=== PATIENT | male | born 1970 | race Caucasian/White ===

== ENCOUNTER 2017-07-24 22:01 | Emergency (ER) | payer OTHER ==
[~2017-07-24] VITALS: Ht 185.4 cm; Wt 86.2 kg
[2017-07-24] MEDS ORDERED: LISINAPRIL (22:20)
[2017-07-24] MEDS ORDERED: ATOR10TA PO (22:20)
--- NOTE | 2017-07-24 22:21 | NUR ---
PATIENT BIB [facility] FOR ALLERGIC REACTION D/T TAKING SUBUTEX. NO RESPIRATORY DISTRESS NOTED, O2 SATURATION 98% ON RA. RESPIRATIONS EVEN AND UNLABORED.
--- NOTE | 2017-07-24 22:32 | NUR ---
DR. PRADO AT BEDSIDE FOR MSE.
[2017-07-24] MEDS ORDERED: IV NORMAL SALINE 1000 ML BAG IV ONE (22:45)
[2017-07-24] MEDS ORDERED: ONDANSETRON 4 MG/2 ML VIAL IV ONE (22:45)
[2017-07-24 22:58] LABS: BASOPHILS # (AUTO) 0.1 K/uL (0.0-8.0); BASOPHILS % (AUTO) 0.5 % (0.0-2.0); EOSINOPHILS # (AUTO) 0.1 K/uL (0.0-0.7); EOSINOPHILS % (AUTO) 0.8 % (0.0-7.0); HEMATOCRIT 42.4 % (36.7-47.1); HEMOGLOBIN 14.5 g/dL (12.5-16.3); LYMPHOCYTES # (AUTO) 3.3 K/uL (20.0-40.0); LYMPHOCYTES % (AUTO) 25.3 % (20.5-51.5); MEAN CORPUSCULAR HEMOGLOBIN 27.9 uug (23.8-33.4); MEAN CORPUSCULAR HGB CONC 34 g/dL (32.5-36.3); MEAN CORPUSCULAR VOLUME 81.7 fL (73.0-96.2); MONOCYTES # (AUTO) 0.8 K/uL (2.0-10.0); NEUTROPHILS # (AUTO) 8.9 K/uL (1.8-8.9); NEUTROPHILS % (AUTO) 67.4 % (38.5-71.5); PLATELET COUNT (AUTO) 216 K/uL (152-348); RED BLOOD CELL COUNT(AUTO) 5.18 MIL/uL (4.06-5.63); WHITE BLOOD COUNT (AUTO) 13.2 K/uL (3.6-10.2)
[2017-07-24] MEDS ORDERED: ONDANSETRON 4 MG/2 ML VIAL ONE (22:58)
[2017-07-24 23:12] LABS: BILIRUBIN,DIRECT 0.1 mg/dL (0.0-0.2); BILIRUBIN,TOTAL 0.4 mg/dL (0.2-1.0); CREATININE 1.2 mg/dL (0.6-1.3); POTASSIUM 3.4 mmol/L (3.5-5.1); TOTAL PROTEIN, SERUM 7.5 g/dL (6.4-8.2)
[2017-07-24] MEDS ORDERED: POTASSIUM CHLORIDE 20 MEQ TAB.PRT.SR PO ONE (23:45)
[2017-07-25] MEDS ORDERED: POTASSIUM CHLORIDE 20 MEQ TAB.PRT.SR ONE (00:02)
--- NOTE | 2017-07-25 00:15 | NUR ---
Patient discharged to home in stable conditon. Written and verbal after care instructions given. Patient verbalizes understanding of instructions. PATIENT LEFT WITH STABLE GAIT.
[2017-07-25 00:16] VITALS: BP 136/93
== END 2017-07-25 00:18 | disposition home or self-care (01) ==
LOC: ER 22:01
DX: G89.29 Other chronic pain (principal); R11.2 Nausea with vomiting, unspecified; E87.6 Hypokalemia; E78.5 Hyperlipidemia, unspecified; I10 Essential (primary) hypertension; I34.1 Nonrheumatic mitral (valve) prolapse; M54.5 Low back pain
CPT/HCPCS: 36415; 80048; 80076; 83690; 85025; 96361; 96374; 99284; A4663; J2405; J7030